=== PATIENT | male | born 1990 | race Two or more races ===

== ENCOUNTER 2018-04-17 10:46 | Emergency (ER) | payer SELFPAY ==
[2018-04-17] MEDS ORDERED: IBUPROFEN 600 MG TABLET. PO (11:19)
[2018-04-17] MEDS: IBUPROFEN 600 MG TABLET. PO (11:23)
== END 2018-04-17 12:23 | disposition home or self-care (01) ==
LOC: ER 10:46
DX: M79.89 Other specified soft tissue disorders (principal); M79.662 Pain in left lower leg
CPT/HCPCS: 73590; 99284